=== PATIENT | male | born 1955 | race Caucasian/White ===

== ENCOUNTER 2022-06-05 13:58 | Inpatient (IN) | payer OTHER, MEDICARE ==
[2022-06-05] VITALS (14 sets, daily range): BP systolic 86–139; BP diastolic 32–80
[~2022-06-05] VITALS: Ht 175.3 cm; Wt 76.4 kg
[2022-06-05] MEDS ORDERED: potassium Cl 40MEQ/1/2NS 520ml 520 ML IV PRN (14:45)
[2022-06-05] MEDS ORDERED: acetaminophen 650mg rectal suppository RC PRN (14:45)
[2022-06-05] MEDS ORDERED: piperacillin/tazo 3.375gm/50ml 50 ML IV ONE (14:45)
[2022-06-05] MEDS ORDERED: magnesium hydroxide 30ml (MOM) UD suspension PO PRN (14:45)
[2022-06-05] MEDS ORDERED: magnesium Cl slow-release 64mg tablet PO PRN (14:45)
[2022-06-05] MEDS ORDERED: ondansetron/PF 4mg/2ml inj IV PRN (14:45)
[2022-06-05] MEDS ORDERED: magnesium 4gm in 100ml NS 100 ML IV PRN (14:45)
[2022-06-05] MEDS ORDERED: HYDROmorphone/PF 0.2 MG/ML SYRINGE IV PRN (14:45)
[2022-06-05] MEDS ORDERED: HYDROcodone/acetaminophen 5mg/325mg tablet PO PRN (14:45)
[2022-06-05] MEDS ORDERED: bisacodyl 10mg suppository rectal RC PRN (14:45)
[2022-06-05] MEDS ORDERED: acetaminophen 325mg tablet PO PRN ×2 (14:45)
[2022-06-05] MEDS ORDERED: metoclopramide 5 mg/ml inj IV PRN (14:45)
[2022-06-05] MEDS ORDERED: ondansetron 4mg rapidly disintigrating tab PO PRN (14:45)
[2022-06-05 14:53] LABS: BASOPHILS % (AUTO) 0.1 % (0-1); EOSINOPHILS % (AUTO) 0 % (0-6); HEMATOCRIT 38.3 % (42.0-52.0); HEMOGLOBIN 12.6 g/dl (14.0-17.9); LYMPHOCYTES # (AUTO) 0.6 X10'3 (1.1-4.8); LYMPHOCYTES % (AUTO) 3.5 % (21-51); MEAN CORPUSCULAR HEMOGLOBIN 31.8 PG (27.0-31.0); MEAN CORPUSCULAR HGB CONC 32.9 g/dL (33.0-36.5); MEAN CORPUSCULAR VOLUME 96.6 FL (78-98); MEAN PLATELET VOLUME 7.7 FL (7.4-10.4); MONOCYTES # (AUTO) 1.7 X10'3 (0-0.9); MONOCYTES % (AUTO) 9.5 % (2-12); NEUTROPHILS # (AUTO) 15.2 X10'3 (1.8-7.7); NEUTROPHILS % (AUTO) 86.9 % (42-75); PLATELET COUNT 330 X10'3 (140-440); RED BLOOD COUNT 3.96 X10'6 (4.70-6.10); RED CELL DISTRIBUTION WIDTH 13.2 % (11.5-14.5); WHITE BLOOD COUNT 17.5 X10'3 (4.5-11.0)
[2022-06-05 14:56] LABS: APTT 30 SECONDS (22-32)
[2022-06-05 14:57] LABS: ALANINE AMINOTRANSFERASE 53 U/L (12-78); ALBUMIN 2.9 G/DL (3.4-5.0); ALBUMIN/GLOBULIN RATIO 0.6 (1.1-1.5); ALKALINE PHOSPHATASE 88 IU/L (46-116); ANION GAP 13 (8-16); ASPARTATE AMINO TRANSFERASE 62 U/L (10-37); BLOOD UREA NITROGEN 10 MG/DL (7-18); BUN/CREATININE RATIO 10.4 (5.4-32.0); CALCIUM 8.8 MG/DL (8.5-10.1); CHLORIDE 92 MMOL/L (99-107); CREATININE 0.96 MG/DL (0.60-1.10); GLUCOSE 101 MG/DL (70-104); LIPASE 151 U/L (73-393); POTASSIUM 2.7 MMOL/L (3.5-5.1); SODIUM 132 MMOL/L (135-145); TOTAL CARBON DIOXIDE 27.3 MMOL/L (24-32); eGFR 78 ML/MIN
--- NOTE | 2022-06-05 16:17 | NUR ---
PATIENT IS BEING TAKEN TO IR FOR PROCEDURE, THEN ADMITTED TO ROOM 357B. ATTEMPTED TO CALL REPORT TO THE SURGICAL FLOOR. NURSE WILL CALL BACK.
[2022-06-05] MEDS ORDERED: midazolam 1 mg/ML 2ml injection ONE (16:26)
[2022-06-05] MEDS ORDERED: fentaNYL/PF 50MCG/1 ML 2ML syringe ONE (16:26)
--- NOTE | 2022-06-05 16:27 | NUR ---
REPORT GIVEN TO RENÉ VALVERDE ON SURGICAL UNIT. PATIENT WILL BE TAKEN TO FLOOR AFTER IR PROCEDURE IS COMPLETED.
[2022-06-05] MEDS ORDERED: ROSU5TAB12 PO (16:52)
[2022-06-05] MEDS ORDERED: TERA2CAP4 PO (16:52)
[2022-06-05] MEDS ORDERED: AMLO5TAB16 PO (16:52)
[2022-06-05] MEDS ORDERED: HYDR-3965 PO (16:52)
[2022-06-05] MEDS ORDERED: SERT-433 PO (16:52)
[2022-06-05] MEDS ORDERED: METH-798 PO (16:52)
[2022-06-05] MEDS: normal saline 1000ml 1,000 ML IV SCH (18:00)
[2022-06-05] MEDS: HYDROcodone/acetaminophen 10/325mg tab PO PRN (19:18)
[2022-06-05] MEDS: K and/or MAG REPLACEMENT MC SCH (20:00)
[2022-06-05] MEDS: docusate sod 100mg capsule PO SCH (20:37)
[2022-06-05] MEDS: heparin, porcine 5000 units/ml vial SQ SCH (20:42)
[2022-06-05] MEDS: cyclobenzaprine 10mg tablet PO SCH (20:43)
[2022-06-05] MEDS: potassium Cl 20 mEq SR tablet PO PRN (20:47)
[2022-06-05] MEDS: Terazosin 1mg capsule PO SCH (21:00)
[2022-06-05] MEDS ORDERED: temazepam 15mg capsule PO PRN (21:00)
[2022-06-06] MEDS ORDERED: piperacillin/tazo 3.375gm/50ml 50 ML IV SCH
[2022-06-06] MEDS: normal saline 1000ml 1,000 ML IV SCH ×3 (00:45→12:34)
[2022-06-06] MEDS: potassium Cl 20 mEq SR tablet PO PRN (01:23)
[2022-06-06 01:39] VITALS: BP 103/64
[2022-06-06] MEDS: piperacillin/tazo 3.375gm/50ml 50 ML IV SCH ×3 (04:34→19:56)
[2022-06-06 06:00] VITALS: BP 114/66
[2022-06-06 06:52] LABS: EOSINOPHILS % (AUTO) 0 % (0-6); HEMOGLOBIN 11.5 g/dl (14.0-17.9); NEUTROPHILS # (AUTO) 11.7 X10'3 (1.8-7.7); PLATELET COUNT 287 X10'3 (140-440); WHITE BLOOD COUNT 13.1 X10'3 (4.5-11.0)
[2022-06-06 06:55] LABS: BASOPHILS % (AUTO) 0.3 % (0-1); HEMATOCRIT 33.7 % (42.0-52.0); LYMPHOCYTES # (AUTO) 0.5 X10'3 (1.1-4.8); LYMPHOCYTES % (AUTO) 3.4 % (21-51); MEAN CORPUSCULAR HEMOGLOBIN 32.5 PG (27.0-31.0); MEAN CORPUSCULAR HGB CONC 34.1 g/dL (33.0-36.5); MEAN CORPUSCULAR VOLUME 95.4 FL (78-98); MONOCYTES # (AUTO) 0.9 X10'3 (0-0.9); MONOCYTES % (AUTO) 7.2 % (2-12); NEUTROPHILS % (AUTO) 89.1 % (42-75); RED BLOOD COUNT 3.53 X10'6 (4.70-6.10); RED CELL DISTRIBUTION WIDTH 13.2 % (11.5-14.5)
[2022-06-06 07:11] LABS: ALANINE AMINOTRANSFERASE 39 U/L (12-78); ALBUMIN 2.1 G/DL (3.4-5.0); ALBUMIN/GLOBULIN RATIO 0.5 (1.1-1.5); ALKALINE PHOSPHATASE 72 IU/L (46-116); ANION GAP 10 (8-16); ASPARTATE AMINO TRANSFERASE 50 U/L (10-37); BILIRUBIN,TOTAL 1.4 MG/DL (0.1-1.0); BLOOD UREA NITROGEN 8 MG/DL (7-18); BUN/CREATININE RATIO 9.2 (5.4-32.0); CHLORIDE 96 MMOL/L (99-107); CREATININE 0.87 MG/DL (0.60-1.10); GLUCOSE 109 MG/DL (70-104); MAGNESIUM 1.8 MG/DL (1.5-2.4); POTASSIUM 3.5 MMOL/L (3.5-5.1); SODIUM 129 MMOL/L (135-145); TOTAL CARBON DIOXIDE 23.5 MMOL/L (24-32); TOTAL PROTEIN 6.4 G/DL (6.4-8.2); eGFR 88 ML/MIN
[2022-06-06] MEDS: HYDROcodone/acetaminophen 5mg/325mg tablet PO SCH ×3 (07:56→16:00)
[2022-06-06] MEDS: cyclobenzaprine 10mg tablet PO SCH ×2 (07:56→19:55)
[2022-06-06] MEDS: amLODIPine 5mg tablet PO SCH (07:56)
[2022-06-06] MEDS: atorvastatin 20mg tablet PO SCH (07:57)
[2022-06-06] MEDS: heparin, porcine 5000 units/ml vial SQ SCH (07:57)
[2022-06-06] MEDS: sertraline 50mg tablet PO SCH (07:59)
[2022-06-06] MEDS: K and/or MAG REPLACEMENT MC SCH ×2 (08:00→20:07)
[2022-06-06] MEDS: docusate sod 100mg capsule PO SCH ×2 (08:00→20:00)
[2022-06-06 11:00] VITALS: BP 112/69
--- NOTE | 2022-06-06 11:35 | NUR ---
Malnutrition Consult: Pt reports unsure of wt loss w/ decreased intake [employer] per RN Malnutrition Screen. Current scaled wt appropriate w/ no prior scaled wt hx in EMR. 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 Pt w/ no edema, mild weakness, and appears WD/WN per MD note in EMR. Pending initial PO intake on clear liquids diet. Pt lacks minimum malnutrition criteria at this time. Addendum: 06/06/22 at [address] Amended: Links added.
[2022-06-06] MEDS: vancomycin/NS 1 GM ADD-VANTAGE 250 ML IV SCH (17:24)
--- NOTE | 2022-06-06 17:53 | NUR ---
PAGER ID: [phone] MESSAGE: Stacey Surg [phone] Re: Hannah 357B Reminder patient wanted to be full code
[2022-06-06 18:00] VITALS: BP 114/66
--- NOTE | 2022-06-06 18:48 | NUR ---
PAGER ID: [phone] MESSAGE: Prudence Surg [phone] Re; 357B Hannah, Can we change scheduled Warner to just his PRN?
--- NOTE | 2022-06-06 18:49 | NUR ---
Problems reprioritized. Patient report given, questions answered & plan of care reviewed with Prudence RN.
--- NOTE | 2022-06-06 18:57 | NUR ---
Patient in room [facility]. I have received report from PALMIRA MERRITT and had the opportunity to ask questions and assume patient care.
[2022-06-06] MEDS: HYDROmorphone inj. 0.5 MG/0.5 ML DISP.SYRIN IV PRN (19:55)
[2022-06-06] MEDS ORDERED: heparin, porcine 5000 units/ml vial SQ ONE (20:00)
[2022-06-06] MEDS: Terazosin 1mg capsule PO SCH (21:00)
[2022-06-06] MEDS: diatr meglu/diatrizoate 30ml oral sol.-(3 dose) bottle PO SCH (22:23)
[2022-06-07] MEDS: normal saline 1000ml 1,000 ML IV SCH ×2 (03:06→16:18)
[2022-06-07] MEDS: HYDROcodone/acetaminophen 10/325mg tab PO PRN ×3 (03:06→16:19)
[2022-06-07] MEDS: piperacillin/tazo 3.375gm/50ml 50 ML IV SCH ×3 (04:19→19:36)
[2022-06-07] MEDS: vancomycin/NS 1 GM ADD-VANTAGE 250 ML IV SCH (05:25)
[2022-06-07 06:00] VITALS: BP 101/67
--- NOTE | 2022-06-07 06:35 | NUR ---
Problems reprioritized. Patient report given, questions answered & plan of care reviewed with RODRIGUEZ MERRITT.
--- NOTE | 2022-06-07 06:49 | NUR ---
Patient in room [facility]. I have received report from Vesna MERRITT and had the opportunity to ask questions and assume patient care.
[2022-06-07 07:06] LABS: BASOPHILS # (AUTO) 0.1 X10'3 (0-0.2); BASOPHILS % (AUTO) 1.1 % (0-1); EOSINOPHILS # (AUTO) 0.1 X10'3 (0-0.9); EOSINOPHILS % (AUTO) 0.7 % (0-6); HEMATOCRIT 32.1 % (42.0-52.0); HEMOGLOBIN 10.7 g/dl (14.0-17.9); LYMPHOCYTES # (AUTO) 0.6 X10'3 (1.1-4.8); LYMPHOCYTES % (AUTO) 4.9 % (21-51); MEAN CORPUSCULAR HEMOGLOBIN 32.3 PG (27.0-31.0); MEAN CORPUSCULAR HGB CONC 33.4 g/dL (33.0-36.5); MEAN CORPUSCULAR VOLUME 96.8 FL (78-98); MEAN PLATELET VOLUME 7.8 FL (7.4-10.4); MONOCYTES # (AUTO) 0.9 X10'3 (0-0.9); MONOCYTES % (AUTO) 7.9 % (2-12); NEUTROPHILS % (AUTO) 85.4 % (42-75); PLATELET COUNT 312 X10'3 (140-440); RED BLOOD COUNT 3.31 X10'6 (4.70-6.10); RED CELL DISTRIBUTION WIDTH 13.2 % (11.5-14.5); WHITE BLOOD COUNT 11.7 X10'3 (4.5-11.0)
[2022-06-07 07:25] LABS: ALANINE AMINOTRANSFERASE 43 U/L (12-78); ALBUMIN 1.8 G/DL (3.4-5.0); ALBUMIN/GLOBULIN RATIO 0.4 (1.1-1.5); ALKALINE PHOSPHATASE 66 IU/L (46-116); ANION GAP 9 (8-16); ASPARTATE AMINO TRANSFERASE 55 U/L (10-37); BILIRUBIN,TOTAL 0.7 MG/DL (0.1-1.0); BLOOD UREA NITROGEN 9 MG/DL (7-18); BUN/CREATININE RATIO 10.8 (5.4-32.0); CALCIUM 8.2 MG/DL (8.5-10.1); CHLORIDE 98 MMOL/L (99-107); CREATININE 0.83 MG/DL (0.60-1.10); GLUCOSE 95 MG/DL (70-104); MAGNESIUM 2.2 MG/DL (1.5-2.4); POTASSIUM 3.3 MMOL/L (3.5-5.1); SODIUM 131 MMOL/L (135-145); TOTAL CARBON DIOXIDE 24.4 MMOL/L (24-32); TOTAL PROTEIN 6.1 G/DL (6.4-8.2); eGFR > 90 ML/MIN
[2022-06-07] MEDS: cyclobenzaprine 10mg tablet PO SCH ×2 (07:28→19:36)
[2022-06-07] MEDS: diatr meglu/diatrizoate 30ml oral sol.-(3 dose) bottle PO SCH ×2 (07:28→08:58)
[2022-06-07] MEDS: docusate sod 100mg capsule PO SCH ×2 (07:29→19:52)
[2022-06-07] MEDS: amLODIPine 5mg tablet PO SCH (07:29)
[2022-06-07] MEDS: sertraline 50mg tablet PO SCH (07:30)
[2022-06-07] MEDS: atorvastatin 20mg tablet PO SCH (07:30)
[2022-06-07] MEDS: K and/or MAG REPLACEMENT MC SCH ×2 (08:00→19:52)
[2022-06-07 10:00] VITALS: BP 101/66
[2022-06-07] MEDS: potassium Cl 20 mEq SR tablet PO PRN (12:36)
[2022-06-07] MEDS: HYDROmorphone inj. 0.5 MG/0.5 ML DISP.SYRIN IV PRN (13:14)
--- NOTE | 2022-06-07 18:35 | NUR ---
Problems reprioritized. Patient report given, questions answered & plan of care reviewed with Prudence RN.
--- NOTE | 2022-06-07 19:10 | NUR ---
Patient in room [facility]. I have received report from RODRIGUEZ MERRITT and had the opportunity to ask questions and assume patient care.
[2022-06-07 19:12] VITALS: BP 110/66
[2022-06-07] MEDS ORDERED: LIDOcaine 2% 10ml TOPICAL JELLY (Urojet) TP ONE (19:55)
--- NOTE | 2022-06-07 20:00 | NUR ---
PER DOCTOR ISIAH, TO BLADDER SCAN PATIENT AND IF THERE IS URINE GREATER THAN 500 CC, TO INSERT FC. 992CC SHOWING ON THE SCANNER AND FC HAS BEEN INSERTED PER MD ORDER. 1800CC OUT IN THE FC. WILL CONTINUE TO MONITOR.
[2022-06-07] MEDS: Terazosin 1mg capsule PO SCH (21:00)
[2022-06-07 21:18] VITALS: BP 96/56
--- NOTE | 2022-06-07 21:28 | NUR ---
Student documentation: I have reviewed and agree with all interventions, assessments performed and documented by PALMIRA(STUDENT).
--- NOTE | 2022-06-07 21:33 | NUR ---
Student Medication Administration: For this medication-pass time frame, all medication were reviewed, dispensed, administered and documented per hospital policy by PALMIRA (STUDENT).
[2022-06-07 22:00] VITALS: BP 103/63
[2022-06-08] VITALS (31 sets, daily range): BP systolic 103–144; BP diastolic 57–85
[2022-06-08] MEDS: normal saline 1000ml 1,000 ML IV SCH ×3 (02:22→20:44)
[2022-06-08] MEDS: piperacillin/tazo 3.375gm/50ml 50 ML IV SCH ×3 (04:03→20:39)
[2022-06-08] MEDS ORDERED: VANCOMYCIN LEVEL IV ONE (04:30)
--- NOTE | 2022-06-08 06:12 | NUR ---
Patient in room [facility]. I have received report from Vesna MERRITT and had the opportunity to ask questions and assume patient care.
--- NOTE | 2022-06-08 06:13 | NUR ---
Problems reprioritized. Patient report given, questions answered & plan of care reviewed with RODRIGUEZ MERRITT.
[2022-06-08 06:48] LABS: BASOPHILS % (AUTO) 0.2 % (0-1); EOSINOPHILS # (AUTO) 0.1 X10'3 (0-0.9); EOSINOPHILS % (AUTO) 1.2 % (0-6); HEMATOCRIT 34.6 % (42.0-52.0); HEMOGLOBIN 11.5 g/dl (14.0-17.9); LYMPHOCYTES # (AUTO) 0.5 X10'3 (1.1-4.8); LYMPHOCYTES % (AUTO) 3.7 % (21-51); MEAN CORPUSCULAR HEMOGLOBIN 32.4 PG (27.0-31.0); MEAN CORPUSCULAR HGB CONC 33.3 g/dL (33.0-36.5); MEAN CORPUSCULAR VOLUME 97.1 FL (78-98); MEAN PLATELET VOLUME 8.3 FL (7.4-10.4); MONOCYTES # (AUTO) 0.8 X10'3 (0-0.9); MONOCYTES % (AUTO) 6.7 % (2-12); NEUTROPHILS # (AUTO) 10.8 X10'3 (1.8-7.7); NEUTROPHILS % (AUTO) 88.2 % (42-75); PLATELET COUNT 390 X10'3 (140-440); RED BLOOD COUNT 3.56 X10'6 (4.70-6.10); RED CELL DISTRIBUTION WIDTH 13.3 % (11.5-14.5); WHITE BLOOD COUNT 12.2 X10'3 (4.5-11.0)
[2022-06-08 06:55] LABS: ALANINE AMINOTRANSFERASE 45 U/L (12-78); ALBUMIN/GLOBULIN RATIO 0.4 (1.1-1.5); ALKALINE PHOSPHATASE 78 IU/L (46-116); ANION GAP 8 (8-16); ASPARTATE AMINO TRANSFERASE 51 U/L (10-37); BILIRUBIN,TOTAL 0.7 MG/DL (0.1-1.0); BLOOD UREA NITROGEN 8 MG/DL (7-18); BUN/CREATININE RATIO 9.5 (5.4-32.0); CALCIUM 8.5 MG/DL (8.5-10.1); CHLORIDE 98 MMOL/L (99-107); CREATININE 0.84 MG/DL (0.60-1.10); GLUCOSE 100 MG/DL (70-104); MAGNESIUM 2.2 MG/DL (1.5-2.4); POTASSIUM 3.4 MMOL/L (3.5-5.1); SODIUM 130 MMOL/L (135-145); TOTAL CARBON DIOXIDE 24.1 MMOL/L (24-32); TOTAL PROTEIN 6.7 G/DL (6.4-8.2); eGFR > 90 ML/MIN
[2022-06-08] MEDS: diatr meglu/diatrizoate 30ml oral sol.-(3 dose) bottle PO SCH ×2 (07:00→21:00)
[2022-06-08] MEDS: HYDROcodone/acetaminophen 10/325mg tab PO PRN (07:31)
[2022-06-08] MEDS: atorvastatin 20mg tablet PO SCH (07:32)
[2022-06-08] MEDS: sertraline 50mg tablet PO SCH (07:33)
[2022-06-08] MEDS: docusate sod 100mg capsule PO SCH ×2 (07:33→20:00)
[2022-06-08] MEDS: K and/or MAG REPLACEMENT MC SCH ×2 (07:34→20:40)
[2022-06-08] MEDS: cyclobenzaprine 10mg tablet PO SCH ×2 (07:34→20:39)
[2022-06-08] MEDS: potassium Cl 20 mEq SR tablet PO PRN (07:36)
[2022-06-08] MEDS: amLODIPine 5mg tablet PO SCH (08:00)
[2022-06-08] MEDS ORDERED: fentaNYL /PF 50mcg/ml 5ml ampule ONE (15:26)
[2022-06-08] MEDS ORDERED: midazolam 1 mg/ML 2ml injection ONE (15:26)
[2022-06-08] MEDS ORDERED: rocuronium 10mg/ml inj IV ONE (15:26)
[2022-06-08] MEDS ORDERED: propofol inj 20 ML IV ONE (15:26)
[2022-06-08] MEDS ORDERED: meperidine/PF 25mg/ml syringe IV PRN ×2 (16:30)
[2022-06-08] MEDS ORDERED: ringers solution, lacted 1,000 ML IV SCH (16:30)
[2022-06-08] MEDS ORDERED: morphine 2 MG/ML inj. syringe IV PRN (16:30)
[2022-06-08] MEDS ORDERED: proCHLORperazine 10 MG/2 ml inj IV PRN (16:30)
[2022-06-08] MEDS ORDERED: ondansetron/PF 4mg/2ml inj IV PRN (16:30)
[2022-06-08] MEDS ORDERED: neostigmine methylsulfate 1 MG/ML 10ml vial ONE (16:36)
[2022-06-08] MEDS ORDERED: glycopyrrolate 0.2mg/ml inj ONE (16:36)
--- NOTE | 2022-06-08 16:52 | NUR ---
Received from OR via HOSPITAL BED , accompanied by Anesthesiologist DR SIM and report given by Anesthesiolgist. PT PRESENTS WITH PIV 20G RIGHT FOREARM, ABD DRESSING WITH CARLA DRAIN, CDI, VSS. Addendum: 06/08/22 at 1707 by Verna Dalton RN, RN Amended: Links added.
[2022-06-08] MEDS: meperidine/PF 25mg/ml syringe IV PRN ×3 (17:39→18:28)
--- NOTE | 2022-06-08 18:32 | NUR ---
Updates given to prudence RN. Pt still in OR/recovery.
[2022-06-08] MEDS: morphine 4 MG/ML inj SYRINge IV PRN (18:34)
--- NOTE | 2022-06-08 18:46 | NUR ---
PATIENT STILL OR
[2022-06-08] MEDS ORDERED: naloxone 0.4 mg/ml inj IV PRN (19:00)
[2022-06-08] MEDS ORDERED: PCA WASTE DOCUMENTATION MC SCH (19:10)
[2022-06-08] MEDS: HYDROmorph/NS 0.2 mg/ml PCA 100 ML IV SCH ×3 (19:31→23:00)
--- NOTE | 2022-06-08 20:08 | NUR ---
Report called to receiving nurse ANGELITA MERRITT. Transferred via HOSPITAL BED TO ROOM 357B. BED IN LOW LOCKED POSITION, CALL LIGHT IN REACH, PT HOOKES UP TO EVIE GOLDSTEIN RN AT BEDSIDE. Belongings WERE LEFT IN PT ROOM, GLASSES IN PT CHART. Special Issues communicated to receiving nurse. Addendum: 06/08/22 at 2020 by Verna Dalton RN RN Amended: Links added.
--- NOTE | 2022-06-08 20:11 | NUR ---
PATIENT BACK FROM OR AND IS RESTING WITH NO SIGN OF DISCOMFORT. USING TRAINING PROGRAM ASSISTANT FOR PAIN MANAGEMENT. WILL CONTINUE TO MONITOR.
[2022-06-08] MEDS: Terazosin 1mg capsule PO SCH (20:39)
[2022-06-09] MEDS: HYDROmorph/NS 0.2 mg/ml PCA 100 ML IV SCH ×11 (01:00→23:00)
[2022-06-09 02:00] VITALS: BP 111/80
[2022-06-09] MEDS: piperacillin/tazo 3.375gm/50ml 50 ML IV SCH ×3 (04:21→20:17)
[2022-06-09] MEDS: normal saline 1000ml 1,000 ML IV SCH ×2 (05:52→16:58)
[2022-06-09 06:00] VITALS: BP 110/72
--- NOTE | 2022-06-09 06:10 | NUR ---
Problems reprioritized. Patient report given, questions answered & plan of care reviewed with MAUREEN MERRITT.
[2022-06-09 06:49] LABS: BASOPHILS # (AUTO) 0.1 X10'3 (0-0.2); BASOPHILS % (AUTO) 0.4 % (0-1); EOSINOPHILS % (AUTO) 0.1 % (0-6); HEMATOCRIT 30.6 % (42.0-52.0); HEMOGLOBIN 10.4 g/dl (14.0-17.9); LYMPHOCYTES # (AUTO) 0.3 X10'3 (1.1-4.8); LYMPHOCYTES % (AUTO) 2.5 % (21-51); MEAN CORPUSCULAR HEMOGLOBIN 32.6 PG (27.0-31.0); MEAN PLATELET VOLUME 8.4 FL (7.4-10.4); MONOCYTES # (AUTO) 0.7 X10'3 (0-0.9); MONOCYTES % (AUTO) 5.2 % (2-12); NEUTROPHILS # (AUTO) 12.3 X10'3 (1.8-7.7); NEUTROPHILS % (AUTO) 91.8 % (42-75); PLATELET COUNT 398 X10'3 (140-440); RED BLOOD COUNT 3.19 X10'6 (4.70-6.10); RED CELL DISTRIBUTION WIDTH 13.3 % (11.5-14.5); WHITE BLOOD COUNT 13.4 X10'3 (4.5-11.0)
[2022-06-09] MEDS: diatr meglu/diatrizoate 30ml oral sol.-(3 dose) bottle PO SCH ×2 (07:00→20:16)
[2022-06-09 07:07] LABS: ALANINE AMINOTRANSFERASE 34 U/L (12-78); ALBUMIN 1.7 G/DL (3.4-5.0); ALBUMIN/GLOBULIN RATIO 0.4 (1.1-1.5); ALKALINE PHOSPHATASE 63 IU/L (46-116); ANION GAP 8 (8-16); ASPARTATE AMINO TRANSFERASE 40 U/L (10-37); BILIRUBIN,TOTAL 0.8 MG/DL (0.1-1.0); BLOOD UREA NITROGEN 7 MG/DL (7-18); BUN/CREATININE RATIO 9.5 (5.4-32.0); CALCIUM 7.9 MG/DL (8.5-10.1); CHLORIDE 100 MMOL/L (99-107); CREATININE 0.74 MG/DL (0.60-1.10); GLUCOSE 126 MG/DL (70-104); MAGNESIUM 1.9 MG/DL (1.5-2.4); POTASSIUM 3.8 MMOL/L (3.5-5.1); SODIUM 134 MMOL/L (135-145); TOTAL PROTEIN 5.8 G/DL (6.4-8.2); eGFR > 90 ML/MIN
[2022-06-09] MEDS: meperidine/PF 25mg/ml syringe IV PRN (07:34)
[2022-06-09] MEDS: morphine 4 MG/ML inj SYRINge IV PRN (07:36)
[2022-06-09] MEDS: K and/or MAG REPLACEMENT MC SCH ×2 (08:00→20:00)
[2022-06-09] MEDS: sertraline 50mg tablet PO SCH (08:50)
[2022-06-09] MEDS: amLODIPine 5mg tablet PO SCH (08:57)
[2022-06-09] MEDS: cyclobenzaprine 10mg tablet PO SCH ×2 (08:58→20:14)
[2022-06-09] MEDS: atorvastatin 20mg tablet PO SCH (08:58)
[2022-06-09] MEDS: docusate sod 100mg capsule PO SCH ×2 (08:58→20:15)
[2022-06-09 10:00] VITALS: BP 106/67
[2022-06-09] MEDS: mag hydrox/Alum hydrox/simeth 30ml oral suspension PO PRN (16:58)
[2022-06-09 18:00] VITALS: BP 117/66
[2022-06-09] MEDS: Terazosin 1mg capsule PO SCH (20:14)
[2022-06-09] MEDS: enoxaparin 40mg/0.4ml syringe SUBCUT SCH (20:15)
[2022-06-09 22:00] VITALS: BP 103/66
[2022-06-10] MEDS: HYDROmorph/NS 0.2 mg/ml PCA 100 ML IV SCH ×5 (01:00→09:00)
[2022-06-10] MEDS: normal saline 1000ml 1,000 ML IV SCH ×3 (03:19→23:28)
[2022-06-10] MEDS: piperacillin/tazo 3.375gm/50ml 50 ML IV SCH ×3 (03:53→20:30)
[2022-06-10 06:00] VITALS: BP 106/60
--- NOTE | 2022-06-10 06:05 | NUR ---
Problems reprioritized. Patient report given, questions answered & plan of care reviewed with RENÉ Padron.
[2022-06-10 06:26] LABS: BASOPHILS % (AUTO) 0.3 % (0-1); EOSINOPHILS # (AUTO) 0.1 X10'3 (0-0.9); EOSINOPHILS % (AUTO) 0.5 % (0-6); HEMATOCRIT 27.4 % (42.0-52.0); HEMOGLOBIN 9.2 g/dl (14.0-17.9); LYMPHOCYTES # (AUTO) 0.8 X10'3 (1.1-4.8); LYMPHOCYTES % (AUTO) 4.7 % (21-51); MEAN CORPUSCULAR HEMOGLOBIN 32.5 PG (27.0-31.0); MEAN CORPUSCULAR HGB CONC 33.6 g/dL (33.0-36.5); MEAN CORPUSCULAR VOLUME 96.7 FL (78-98); MEAN PLATELET VOLUME 8.3 FL (7.4-10.4); MONOCYTES # (AUTO) 0.8 X10'3 (0-0.9); NEUTROPHILS # (AUTO) 14.7 X10'3 (1.8-7.7); NEUTROPHILS % (AUTO) 89.5 % (42-75); PLATELET COUNT 450 X10'3 (140-440); RED BLOOD COUNT 2.83 X10'6 (4.70-6.10); RED CELL DISTRIBUTION WIDTH 13.3 % (11.5-14.5); WHITE BLOOD COUNT 16.5 X10'3 (4.5-11.0)
[2022-06-10 06:34] LABS: ALANINE AMINOTRANSFERASE 35 U/L (12-78); ALBUMIN 1.7 G/DL (3.4-5.0); ALBUMIN/GLOBULIN RATIO 0.4 (1.1-1.5); ALKALINE PHOSPHATASE 84 IU/L (46-116); ANION GAP 11 (8-16); ASPARTATE AMINO TRANSFERASE 56 U/L (10-37); BLOOD UREA NITROGEN 9 MG/DL (7-18); BUN/CREATININE RATIO 11.1 (5.4-32.0); CHLORIDE 102 MMOL/L (99-107); CREATININE 0.81 MG/DL (0.60-1.10); GLUCOSE 91 MG/DL (70-104); POTASSIUM 3.4 MMOL/L (3.5-5.1); SODIUM 137 MMOL/L (135-145); TOTAL CARBON DIOXIDE 23.8 MMOL/L (24-32); TOTAL PROTEIN 6.1 G/DL (6.4-8.2); eGFR > 90 ML/MIN
[2022-06-10] MEDS: K and/or MAG REPLACEMENT MC SCH ×2 (08:00→19:28)
[2022-06-10] MEDS: atorvastatin 20mg tablet PO SCH (08:46)
[2022-06-10] MEDS: amLODIPine 5mg tablet PO SCH (08:46)
[2022-06-10] MEDS: docusate sod 100mg capsule PO SCH ×2 (08:46→20:10)
[2022-06-10] MEDS: cyclobenzaprine 10mg tablet PO SCH ×2 (08:46→20:09)
[2022-06-10] MEDS: sertraline 50mg tablet PO SCH (08:46)
[2022-06-10] MEDS: mag hydrox/Alum hydrox/simeth 30ml oral suspension PO PRN (08:52)
[2022-06-10] MEDS ORDERED: HYDROmorphone/PF 0.2 MG/ML SYRINGE IV PRN (12:20)
[2022-06-10] MEDS: oxyCODONE/APAP 5-325mg tablet PO PRN ×3 (13:22→23:27)
[2022-06-10] MEDS ORDERED: PCA WASTE DOCUMENTATION MC SCH (13:30)
[2022-06-10] MEDS: HYDROmorphone inj. 0.5 MG/0.5 ML DISP.SYRIN IV PRN (14:36)
--- NOTE | 2022-06-10 16:54 | NUR ---
Initial: Pt admit DX sepsis secondary to perforated appendicitis, transaminitis, depression, and improving hyponatremia/hypokalemia per EMR. Pt s/p OR for cecal resection and clearance of abdominal abscess 06/08 advanced to full liquids diet to start tonight from initial 4 days clear liquids per EMR. Pt PO mostly 0-25% clears not meeting nutrient needs. OLVIN recommends Ensure Enlive TIDWM now that diet is advanced; notified. LBM 06/08. Will monitor for further PO trends and nutrition intervention needs this admit. Rec: 1. advance diet as medically indicated to low-residue; encourage PO 2. Ensure Enlive TIDWM; pending physician verification in EMR 3. MVI for wound healing needs 4. routine bowel care 5. weekly wts Addendum: 06/10/22 at [address] Amended: Links added.
[2022-06-10 18:00] VITALS: BP 113/57
[2022-06-10] MEDS: lactose-reduced food (Ensure Enlive) - 237ml bottle PO SCH (18:00)
[2022-06-10] MEDS: Terazosin 1mg capsule PO SCH (20:10)
[2022-06-10] MEDS: enoxaparin 40mg/0.4ml syringe SUBCUT SCH (20:10)
[2022-06-10 22:00] VITALS: BP 116/61
[2022-06-11] MEDS: oxyCODONE/APAP 5-325mg tablet PO PRN ×3 (04:06→19:19)
[2022-06-11] MEDS: piperacillin/tazo 3.375gm/50ml 50 ML IV SCH ×3 (04:06→19:28)
[2022-06-11 06:00] VITALS: BP 116/66
--- NOTE | 2022-06-11 06:25 | NUR ---
Problems reprioritized. Patient report given, questions answered & plan of care reviewed with RENÉ Ring.
[2022-06-11 06:41] LABS: BASOPHILS % (AUTO) 0.2 % (0-1); EOSINOPHILS # (AUTO) 0.1 X10'3 (0-0.9); EOSINOPHILS % (AUTO) 0.9 % (0-6); HEMATOCRIT 25.8 % (42.0-52.0); HEMOGLOBIN 8.7 g/dl (14.0-17.9); LYMPHOCYTES # (AUTO) 0.5 X10'3 (1.1-4.8); LYMPHOCYTES % (AUTO) 3.6 % (21-51); MEAN CORPUSCULAR HEMOGLOBIN 32.3 PG (27.0-31.0); MEAN CORPUSCULAR HGB CONC 33.6 g/dL (33.0-36.5); MEAN CORPUSCULAR VOLUME 96.1 FL (78-98); MEAN PLATELET VOLUME 8.1 FL (7.4-10.4); MONOCYTES # (AUTO) 0.6 X10'3 (0-0.9); MONOCYTES % (AUTO) 4.6 % (2-12); NEUTROPHILS # (AUTO) 12.7 X10'3 (1.8-7.7); NEUTROPHILS % (AUTO) 90.7 % (42-75); PLATELET COUNT 483 X10'3 (140-440); RED BLOOD COUNT 2.69 X10'6 (4.70-6.10); RED CELL DISTRIBUTION WIDTH 13.6 % (11.5-14.5)
--- NOTE | 2022-06-11 06:45 | NUR ---
Patient in room [facility]. I have received report from RENÉ SWAN and had the opportunity to ask questions and assume patient care.
[2022-06-11 06:52] LABS: ALANINE AMINOTRANSFERASE 53 U/L (12-78); ALBUMIN 1.5 G/DL (3.4-5.0); ALBUMIN/GLOBULIN RATIO 0.4 (1.1-1.5); ALKALINE PHOSPHATASE 173 IU/L (46-116); ANION GAP 11 (8-16); ASPARTATE AMINO TRANSFERASE 109 U/L (10-37); BILIRUBIN,TOTAL 0.9 MG/DL (0.1-1.0); BLOOD UREA NITROGEN 7 MG/DL (7-18); CALCIUM 7.8 MG/DL (8.5-10.1); CHLORIDE 101 MMOL/L (99-107); GLUCOSE 93 MG/DL (70-104); POTASSIUM 3.1 MMOL/L (3.5-5.1); SODIUM 137 MMOL/L (135-145); TOTAL CARBON DIOXIDE 25.5 MMOL/L (24-32); TOTAL PROTEIN 5.6 G/DL (6.4-8.2); eGFR > 90 ML/MIN
[2022-06-11] MEDS: HYDROmorphone inj. 0.5 MG/0.5 ML DISP.SYRIN IV PRN (07:45)
[2022-06-11] MEDS: K and/or MAG REPLACEMENT MC SCH ×2 (08:00→19:14)
[2022-06-11 10:00] VITALS: BP 127/70
[2022-06-11] MEDS: normal saline 1000ml 1,000 ML IV SCH ×2 (10:43→20:45)
[2022-06-11] MEDS: amLODIPine 5mg tablet PO SCH (10:52)
[2022-06-11] MEDS: atorvastatin 20mg tablet PO SCH (10:53)
[2022-06-11] MEDS: sertraline 50mg tablet PO SCH (10:53)
[2022-06-11] MEDS: cyclobenzaprine 10mg tablet PO SCH ×2 (10:53→19:17)
[2022-06-11] MEDS: docusate sod 100mg capsule PO SCH ×2 (10:58→19:14)
[2022-06-11] MEDS ORDERED: ketorolac tromethamine 15mg/ml inj. IV PRN (11:25)
[2022-06-11] MEDS ORDERED: LIDOcaine 2% 10ml TOPICAL JELLY (Urojet) TP ONE (13:15)
[2022-06-11 18:00] VITALS: BP 122/64
[2022-06-11] MEDS ORDERED: magnesium Cl slow-release 64mg tablet PO PRN (19:15)
[2022-06-11] MEDS ORDERED: potassium Cl 40MEQ/1/2NS 520ml 520 ML IV PRN (19:15)
[2022-06-11] MEDS ORDERED: potassium Cl 20 mEq SR tablet PO PRN (19:15)
[2022-06-11] MEDS ORDERED: magnesium 4gm in 100ml NS 100 ML IV PRN (19:15)
[2022-06-11] MEDS: Terazosin 1mg capsule PO SCH (19:18)
[2022-06-11] MEDS: enoxaparin 40mg/0.4ml syringe SUBCUT SCH (19:18)
--- NOTE | 2022-06-11 19:19 | NUR ---
Problems reprioritized. Patient report given, questions answered & plan of care reviewed with RENÉ SWAN.
[2022-06-11 22:00] VITALS: BP 126/71
[2022-06-12] MEDS: piperacillin/tazo 3.375gm/50ml 50 ML IV SCH ×3 (03:54→19:55)
[2022-06-12] MEDS: oxyCODONE/APAP 5-325mg tablet PO PRN ×2 (04:22→20:51)
[2022-06-12 05:41] LABS: BASOPHILS % (AUTO) 0.1 % (0-1); EOSINOPHILS # (AUTO) 0.1 X10'3 (0-0.9); EOSINOPHILS % (AUTO) 0.7 % (0-6); HEMATOCRIT 28.3 % (42.0-52.0); HEMOGLOBIN 9.3 g/dl (14.0-17.9); LYMPHOCYTES # (AUTO) 0.5 X10'3 (1.1-4.8); LYMPHOCYTES % (AUTO) 4.4 % (21-51); MEAN CORPUSCULAR HEMOGLOBIN 31.4 PG (27.0-31.0); MEAN CORPUSCULAR VOLUME 95.2 FL (78-98); MEAN PLATELET VOLUME 7.9 FL (7.4-10.4); MONOCYTES # (AUTO) 0.7 X10'3 (0-0.9); MONOCYTES % (AUTO) 5.6 % (2-12); NEUTROPHILS # (AUTO) 10.6 X10'3 (1.8-7.7); NEUTROPHILS % (AUTO) 89.2 % (42-75); PLATELET COUNT 588 X10'3 (140-440); RED BLOOD COUNT 2.98 X10'6 (4.70-6.10); RED CELL DISTRIBUTION WIDTH 13.7 % (11.5-14.5); WHITE BLOOD COUNT 11.8 X10'3 (4.5-11.0)
[2022-06-12 06:00] VITALS: BP 137/63
[2022-06-12 06:01] LABS: ALANINE AMINOTRANSFERASE 44 U/L (12-78); ALBUMIN 1.6 G/DL (3.4-5.0); ALBUMIN/GLOBULIN RATIO 0.4 (1.1-1.5); ALKALINE PHOSPHATASE 179 IU/L (46-116); ANION GAP 10 (8-16); ASPARTATE AMINO TRANSFERASE 69 U/L (10-37); BILIRUBIN,TOTAL 0.8 MG/DL (0.1-1.0); BLOOD UREA NITROGEN 5 MG/DL (7-18); BUN/CREATININE RATIO 7.7 (5.4-32.0); CALCIUM 7.7 MG/DL (8.5-10.1); CHLORIDE 98 MMOL/L (99-107); CREATININE 0.65 MG/DL (0.60-1.10); GLUCOSE 96 MG/DL (70-104); SODIUM 134 MMOL/L (135-145); TOTAL CARBON DIOXIDE 25.6 MMOL/L (24-32); TOTAL PROTEIN 5.8 G/DL (6.4-8.2); eGFR > 90 ML/MIN
[2022-06-12 06:06] LABS: POTASSIUM 2.7 MMOL/L (3.5-5.1)
--- NOTE | 2022-06-12 06:09 | NUR ---
CRITICAL POTASSIUM 2.7, DR CHANDLER CALLED, WILL REPLACE PER PROTOCOL
--- NOTE | 2022-06-12 06:35 | NUR ---
Problems reprioritized. Patient report given, questions answered & plan of care reviewed with RENÉ Ring.
--- NOTE | 2022-06-12 06:42 | NUR ---
Patient in room [facility]. I have received report from RENÉ SWAN and had the opportunity to ask questions and assume patient care.
[2022-06-12] MEDS: K and/or MAG REPLACEMENT MC SCH ×2 (08:00→19:58)
[2022-06-12 10:00] VITALS: BP 125/72
[2022-06-12] MEDS: docusate sod 100mg capsule PO SCH ×2 (11:48→19:59)
[2022-06-12] MEDS: amLODIPine 5mg tablet PO SCH (11:48)
[2022-06-12] MEDS: sertraline 50mg tablet PO SCH (11:49)
[2022-06-12] MEDS: atorvastatin 20mg tablet PO SCH (11:49)
[2022-06-12] MEDS: potassium Cl 20 mEq SR tablet PO PRN ×3 (11:49→20:52)
[2022-06-12] MEDS: cyclobenzaprine 10mg tablet PO SCH ×2 (11:49→19:55)
[2022-06-12] MEDS: normal saline 1000ml 1,000 ML IV SCH (11:49)
[2022-06-12] MEDS: lactose-reduced food (Ensure Enlive) - 237ml bottle PO SCH (18:00)
--- NOTE | 2022-06-12 18:23 | NUR ---
Problems reprioritized. Patient report given, questions answered & plan of care reviewed with RENÉ NANCE.
[2022-06-12 19:00] VITALS: BP 128/73
[2022-06-12 19:20] VITALS: BP 128/73
[2022-06-12] MEDS: Potassium Cl inj 20 MEQ in normal saline 1000ml 990 ML IV SCH (19:55)
[2022-06-12] MEDS: enoxaparin 40mg/0.4ml syringe SUBCUT SCH (20:00)
[2022-06-12] MEDS: Terazosin 1mg capsule PO SCH (20:50)
[2022-06-12 22:00] VITALS: BP 120/65
[2022-06-13] MEDS: Potassium Cl inj 20 MEQ in normal saline 1000ml 990 ML IV SCH ×2 (03:05→13:05)
[2022-06-13] MEDS: piperacillin/tazo 3.375gm/50ml 50 ML IV SCH ×3 (04:00→20:06)
[2022-06-13 05:54] LABS: BASOPHILS % (AUTO) 0.2 % (0-1); HEMOGLOBIN 10.1 g/dl (14.0-17.9); LYMPHOCYTES # (AUTO) 0.7 X10'3 (1.1-4.8); RED CELL DISTRIBUTION WIDTH 13.7 % (11.5-14.5)
[2022-06-13 05:57] LABS: EOSINOPHILS # (AUTO) 0.1 X10'3 (0-0.9); HEMATOCRIT 30.6 % (42.0-52.0); LYMPHOCYTES % (AUTO) 4.9 % (21-51); MEAN CORPUSCULAR HEMOGLOBIN 31.7 PG (27.0-31.0); MEAN PLATELET VOLUME 7.9 FL (7.4-10.4); MONOCYTES # (AUTO) 0.8 X10'3 (0-0.9); MONOCYTES % (AUTO) 5.8 % (2-12); NEUTROPHILS # (AUTO) 11.6 X10'3 (1.8-7.7); NEUTROPHILS % (AUTO) 88.1 % (42-75); PLATELET COUNT 699 X10'3 (140-440); RED BLOOD COUNT 3.19 X10'6 (4.70-6.10); WHITE BLOOD COUNT 13.2 X10'3 (4.5-11.0)
[2022-06-13 06:00] VITALS: BP 123/72
[2022-06-13 06:13] LABS: ALANINE AMINOTRANSFERASE 48 U/L (12-78); ALBUMIN/GLOBULIN RATIO 0.4 (1.1-1.5); ALKALINE PHOSPHATASE 168 IU/L (46-116); ANION GAP 10 (8-16); ASPARTATE AMINO TRANSFERASE 63 U/L (10-37); BILIRUBIN,TOTAL 0.8 MG/DL (0.1-1.0); BLOOD UREA NITROGEN 6 MG/DL (7-18); BUN/CREATININE RATIO 8.8 (5.4-32.0); CALCIUM 8.3 MG/DL (8.5-10.1); CHLORIDE 99 MMOL/L (99-107); CREATININE 0.68 MG/DL (0.60-1.10); GLUCOSE 97 MG/DL (70-104); POTASSIUM 3.6 MMOL/L (3.5-5.1); SODIUM 134 MMOL/L (135-145); TOTAL CARBON DIOXIDE 24.7 MMOL/L (24-32); TOTAL PROTEIN 6.7 G/DL (6.4-8.2); eGFR > 90 ML/MIN
--- NOTE | 2022-06-13 06:17 | NUR ---
Patient in room [facility]. I have received report from RENÉ NANCE and had the opportunity to ask questions and assume patient care.
[2022-06-13] MEDS: lactose-reduced food (Ensure Enlive) - 237ml bottle PO SCH ×3 (08:00→18:00)
[2022-06-13] MEDS: K and/or MAG REPLACEMENT MC SCH ×2 (08:00→20:00)
[2022-06-13] MEDS: docusate sod 100mg capsule PO SCH (08:00)
--- NOTE | 2022-06-13 08:58 | NUR ---
Reassessment: Pt has been advanced to Regular diet 06/11, continues w/ mostly 0-25% intake though did have 100% of first ONS. If pt consumes 100% of ONS it will meet ~55% of est energy needs and 52% of est protein needs. Recommend changing to Low Residue diet given GI surgery. LBM 06/12 receiving routine colace. Will continue to monitor. Rec: 1. Change to Low residue diet; encourage PO 2. Ensure Enlive TIDW 3. MVI for wound healing needs 4. routine bowel care 5. weekly wts Addendum: 06/13/22 at [address] Amended: Links added.
[2022-06-13] MEDS: atorvastatin 20mg tablet PO SCH (09:00)
[2022-06-13] MEDS: cyclobenzaprine 10mg tablet PO SCH ×2 (09:00→20:06)
[2022-06-13] MEDS: sertraline 50mg tablet PO SCH (09:00)
[2022-06-13] MEDS: amLODIPine 5mg tablet PO SCH (09:01)
[2022-06-13 11:00] VITALS: BP 128/73
[2022-06-13 18:00] VITALS: BP 132/61
--- NOTE | 2022-06-13 18:25 | NUR ---
Patient in room [facility]. I have received report from RENÉ Ring and had the opportunity to ask questions and assume patient care.
--- NOTE | 2022-06-13 19:12 | NUR ---
Problems reprioritized. Patient report given, questions answered & plan of care reviewed with RENÉ MENDOZA.
[2022-06-13] MEDS: enoxaparin 40mg/0.4ml syringe SUBCUT SCH (20:07)
[2022-06-13] MEDS: Terazosin 1mg capsule PO SCH (20:07)
[2022-06-13 22:00] VITALS: BP 133/70
[2022-06-14] MEDS: Potassium Cl inj 20 MEQ in normal saline 1000ml 990 ML IV SCH ×3 (02:51→12:22)
[2022-06-14] MEDS: piperacillin/tazo 3.375gm/50ml 50 ML IV SCH ×3 (03:51→20:16)
[2022-06-14 06:00] VITALS: BP 131/80
--- NOTE | 2022-06-14 06:41 | NUR ---
Problems reprioritized. Patient report given, questions answered & plan of care reviewed with RENÉ Curtis.
--- NOTE | 2022-06-14 06:53 | NUR ---
Patient in room [facility]. I have received report from Andree MERRITT and had the opportunity to ask questions and assume patient care.
[2022-06-14 07:09] LABS: BASOPHILS # (AUTO) 0.1 X10'3 (0-0.2); EOSINOPHILS # (AUTO) 0.2 X10'3 (0-0.9); HEMOGLOBIN 10.2 g/dl (14.0-17.9); LYMPHOCYTES # (AUTO) 0.7 X10'3 (1.1-4.8); MEAN PLATELET VOLUME 7.8 FL (7.4-10.4)
[2022-06-14 07:11] LABS: BASOPHILS % (AUTO) 0.4 % (0-1); EOSINOPHILS % (AUTO) 1.1 % (0-6); HEMATOCRIT 29.8 % (42.0-52.0); LYMPHOCYTES % (AUTO) 4.5 % (21-51); MEAN CORPUSCULAR HEMOGLOBIN 32.5 PG (27.0-31.0); MEAN CORPUSCULAR HGB CONC 34.1 g/dL (33.0-36.5); MEAN CORPUSCULAR VOLUME 95.3 FL (78-98); MONOCYTES # (AUTO) 0.9 X10'3 (0-0.9); MONOCYTES % (AUTO) 5.9 % (2-12); NEUTROPHILS # (AUTO) 12.9 X10'3 (1.8-7.7); NEUTROPHILS % (AUTO) 88.1 % (42-75); PLATELET COUNT 657 X10'3 (140-440); RED BLOOD COUNT 3.13 X10'6 (4.70-6.10); RED CELL DISTRIBUTION WIDTH 13.7 % (11.5-14.5); WHITE BLOOD COUNT 14.6 X10'3 (4.5-11.0)
[2022-06-14 07:25] LABS: ALANINE AMINOTRANSFERASE 47 U/L (12-78); ALBUMIN 1.9 G/DL (3.4-5.0); ALBUMIN/GLOBULIN RATIO 0.4 (1.1-1.5); ALKALINE PHOSPHATASE 142 IU/L (46-116); ANION GAP 12 (8-16); ASPARTATE AMINO TRANSFERASE 55 U/L (10-37); BILIRUBIN,TOTAL 0.7 MG/DL (0.1-1.0); BLOOD UREA NITROGEN 7 MG/DL (7-18); BUN/CREATININE RATIO 10.6 (5.4-32.0); CALCIUM 8.1 MG/DL (8.5-10.1); CHLORIDE 99 MMOL/L (99-107); CREATININE 0.66 MG/DL (0.60-1.10); GLUCOSE 109 MG/DL (70-104); POTASSIUM 3.8 MMOL/L (3.5-5.1); SODIUM 132 MMOL/L (135-145); TOTAL CARBON DIOXIDE 21.4 MMOL/L (24-32); TOTAL PROTEIN 6.6 G/DL (6.4-8.2); eGFR > 90 ML/MIN
[2022-06-14] MEDS: K and/or MAG REPLACEMENT MC SCH ×2 (08:00→20:00)
[2022-06-14] MEDS: sertraline 50mg tablet PO SCH (08:39)
[2022-06-14] MEDS: cyclobenzaprine 10mg tablet PO SCH ×2 (08:39→20:16)
[2022-06-14] MEDS: atorvastatin 20mg tablet PO SCH (08:39)
[2022-06-14] MEDS: amLODIPine 5mg tablet PO SCH (08:40)
[2022-06-14] MEDS: oxyCODONE/APAP 5-325mg tablet PO PRN (08:41)
[2022-06-14] MEDS: lactose-reduced food (Ensure Enlive) - 237ml bottle PO SCH ×3 (08:42→18:00)
[2022-06-14 11:00] VITALS: BP 112/60
[2022-06-14] MEDS ORDERED: iohexol 300mg/ml 100ml inj. ONE (14:25)
--- NOTE | 2022-06-14 16:59 | NUR ---
PAGER ID: [phone] MESSAGE: Bereket Alejandre#[phone]- FYI Pt's CT results are up. Thank you Kirsten Bernal [phone]
[2022-06-14] MEDS: mag hydrox/Alum hydrox/simeth 30ml oral suspension PO PRN (17:50)
[2022-06-14 18:00] VITALS: BP 134/77
--- NOTE | 2022-06-14 18:23 | NUR ---
Problems reprioritized. Patient report given, questions answered & plan of care reviewed with Andree MERRITT.
--- NOTE | 2022-06-14 18:25 | NUR ---
Patient in room [facility]. I have received report from RENÉ Curtis and had the opportunity to ask questions and assume patient care.
[2022-06-14] MEDS: Terazosin 1mg capsule PO SCH (20:16)
[2022-06-14] MEDS: enoxaparin 40mg/0.4ml syringe SUBCUT SCH (20:16)
[2022-06-14 22:00] VITALS: BP 135/72
[2022-06-15] MEDS: piperacillin/tazo 3.375gm/50ml 50 ML IV SCH ×3 (04:12→19:50)
[2022-06-15] MEDS: Potassium Cl inj 20 MEQ in normal saline 1000ml 990 ML IV SCH ×2 (04:13→12:34)
[2022-06-15 06:00] VITALS: BP 113/72
--- NOTE | 2022-06-15 06:24 | NUR ---
Problems reprioritized. Patient report given, questions answered & plan of care reviewed with RENÉ Curtis.
[2022-06-15 06:37] LABS: BASOPHILS # (AUTO) 0.1 X10'3 (0-0.2); BASOPHILS % (AUTO) 0.5 % (0-1); EOSINOPHILS # (AUTO) 0.1 X10'3 (0-0.9); EOSINOPHILS % (AUTO) 0.5 % (0-6); HEMOGLOBIN 9.5 g/dl (14.0-17.9); LYMPHOCYTES # (AUTO) 0.4 X10'3 (1.1-4.8); LYMPHOCYTES % (AUTO) 2.9 % (21-51); MEAN CORPUSCULAR HEMOGLOBIN 31.1 PG (27.0-31.0); MEAN CORPUSCULAR HGB CONC 32.8 g/dL (33.0-36.5); MEAN CORPUSCULAR VOLUME 94.6 FL (78-98); MEAN PLATELET VOLUME 8.2 FL (7.4-10.4); MONOCYTES # (AUTO) 0.6 X10'3 (0-0.9); MONOCYTES % (AUTO) 4.3 % (2-12); NEUTROPHILS # (AUTO) 12.3 X10'3 (1.8-7.7); NEUTROPHILS % (AUTO) 91.8 % (42-75); PLATELET COUNT 547 X10'3 (140-440); RED BLOOD COUNT 3.07 X10'6 (4.70-6.10); RED CELL DISTRIBUTION WIDTH 13.7 % (11.5-14.5); WHITE BLOOD COUNT 13.4 X10'3 (4.5-11.0)
--- NOTE | 2022-06-15 06:46 | NUR ---
Patient in room [facility]. I have received report from Vesna MERRITT and had the opportunity to ask questions and assume patient care.
[2022-06-15 06:51] LABS: ALANINE AMINOTRANSFERASE 49 U/L (12-78); ALBUMIN/GLOBULIN RATIO 0.4 (1.1-1.5); ALKALINE PHOSPHATASE 122 IU/L (46-116); ANION GAP 10 (8-16); ASPARTATE AMINO TRANSFERASE 46 U/L (10-37); BILIRUBIN,TOTAL 0.5 MG/DL (0.1-1.0); BLOOD UREA NITROGEN 8 MG/DL (7-18); BUN/CREATININE RATIO 11.4 (5.4-32.0); CALCIUM 8.1 MG/DL (8.5-10.1); CHLORIDE 98 MMOL/L (99-107); GLUCOSE 103 MG/DL (70-104); POTASSIUM 3.9 MMOL/L (3.5-5.1); SODIUM 131 MMOL/L (135-145); TOTAL CARBON DIOXIDE 22.9 MMOL/L (24-32); TOTAL PROTEIN 6.5 G/DL (6.4-8.2); eGFR > 90 ML/MIN
[2022-06-15] MEDS: sertraline 50mg tablet PO SCH (07:38)
[2022-06-15] MEDS: atorvastatin 20mg tablet PO SCH (07:38)
[2022-06-15] MEDS: cyclobenzaprine 10mg tablet PO SCH ×2 (07:38→19:50)
[2022-06-15] MEDS: mag hydrox/Alum hydrox/simeth 30ml oral suspension PO PRN (07:39)
[2022-06-15] MEDS: amLODIPine 5mg tablet PO SCH (08:00)
[2022-06-15] MEDS: lactose-reduced food (Ensure Enlive) - 237ml bottle PO SCH ×3 (08:00→18:00)
[2022-06-15] MEDS: K and/or MAG REPLACEMENT MC SCH ×2 (08:00→19:43)
[2022-06-15 10:00] VITALS: BP 103/62
[2022-06-15] MEDS ORDERED: pantoprazole 40mg Tablet.DR PO STA (10:39)
[2022-06-15 18:00] VITALS: BP 122/69
--- NOTE | 2022-06-15 18:30 | NUR ---
Patient in room [facility]. I have received report from RENÉ Curtis and had the opportunity to ask questions and assume patient care.
--- NOTE | 2022-06-15 18:38 | NUR ---
Problems reprioritized. Patient report given, questions answered & plan of care reviewed with shai MERRITT.
[2022-06-15] MEDS: Terazosin 1mg capsule PO SCH (19:50)
[2022-06-15] MEDS: enoxaparin 40mg/0.4ml syringe SUBCUT SCH (19:51)
[2022-06-15 22:00] VITALS: BP 131/67
[2022-06-16] MEDS: Potassium Cl inj 20 MEQ in normal saline 1000ml 990 ML IV SCH ×2 (01:19→11:05)
[2022-06-16] MEDS: piperacillin/tazo 3.375gm/50ml 50 ML IV SCH (03:52)
[2022-06-16 06:18] LABS: BASOPHILS # (AUTO) 0.1 X10'3 (0-0.2); BASOPHILS % (AUTO) 0.6 % (0-1); EOSINOPHILS # (AUTO) 0.1 X10'3 (0-0.9); EOSINOPHILS % (AUTO) 0.5 % (0-6); HEMATOCRIT 28.9 % (42.0-52.0); HEMOGLOBIN 9.6 g/dl (14.0-17.9); LYMPHOCYTES # (AUTO) 0.6 X10'3 (1.1-4.8); LYMPHOCYTES % (AUTO) 4.8 % (21-51); MEAN CORPUSCULAR HEMOGLOBIN 31.2 PG (27.0-31.0); MEAN CORPUSCULAR HGB CONC 33.1 g/dL (33.0-36.5); MEAN CORPUSCULAR VOLUME 94.4 FL (78-98); MEAN PLATELET VOLUME 7.8 FL (7.4-10.4); MONOCYTES % (AUTO) 8.8 % (2-12); NEUTROPHILS % (AUTO) 85.3 % (42-75); PLATELET COUNT 602 X10'3 (140-440); RED BLOOD COUNT 3.06 X10'6 (4.70-6.10); RED CELL DISTRIBUTION WIDTH 14.2 % (11.5-14.5); WHITE BLOOD COUNT 11.8 X10'3 (4.5-11.0)
[2022-06-16 06:36] LABS: ALANINE AMINOTRANSFERASE 62 U/L (12-78); ALBUMIN 2.1 G/DL (3.4-5.0); ALBUMIN/GLOBULIN RATIO 0.5 (1.1-1.5); ALKALINE PHOSPHATASE 102 IU/L (46-116); ANION GAP 12 (8-16); ASPARTATE AMINO TRANSFERASE 59 U/L (10-37); BILIRUBIN,TOTAL 0.5 MG/DL (0.1-1.0); BLOOD UREA NITROGEN 8 MG/DL (7-18); BUN/CREATININE RATIO 9.9 (5.4-32.0); CHLORIDE 96 MMOL/L (99-107); CREATININE 0.81 MG/DL (0.60-1.10); GLUCOSE 85 MG/DL (70-104); SODIUM 129 MMOL/L (135-145); TOTAL CARBON DIOXIDE 21.5 MMOL/L (24-32); TOTAL PROTEIN 6.7 G/DL (6.4-8.2); eGFR > 90 ML/MIN
--- NOTE | 2022-06-16 06:45 | NUR ---
Problems reprioritized. Patient report given, questions answered & plan of care reviewed with RENÉ Tellez.
[2022-06-16 07:00] VITALS: BP 119/74
[2022-06-16] MEDS ORDERED: pantoprazole 40mg Tablet.DR PO SCH (07:30)
[2022-06-16] MEDS: K and/or MAG REPLACEMENT MC SCH (08:00)
[2022-06-16] MEDS: lactose-reduced food (Ensure Enlive) - 237ml bottle PO SCH (08:51)
[2022-06-16] MEDS: amLODIPine 5mg tablet PO SCH (08:51)
[2022-06-16] MEDS: sertraline 50mg tablet PO SCH (08:51)
[2022-06-16] MEDS: cyclobenzaprine 10mg tablet PO SCH (08:51)
[2022-06-16] MEDS: atorvastatin 20mg tablet PO SCH (08:51)
[2022-06-16] MEDS ORDERED: FLO0.4C PO (10:16)
[2022-06-16] MEDS ORDERED: LEVO-65 PO (10:16)
[2022-06-16] MEDS ORDERED: METR-159 PO (10:16)
[2022-06-16 12:30] VITALS: BP 110/54
== END 2022-06-16 12:35 | DRG 853 ==
LOC: ER 13:59 → ED HOLD 14:45 → SUR 3N 18:34
PROVIDERS: ADMIT Family Medicine; ATTEND Family Medicine
PROC: 0D9 Gastrointestinal System, Drainage (ICD-10-PCS; 2022-06-05)
PROC: 0DTH0ZZ Resection of Cecum, Open Approach (ICD-10-PCS; principal; 2022-06-08 15:22)
PROC: BW211ZZ Computerized Tomography (CT Scan) of Abdomen and Pelvis using Low Osmolar Contrast (ICD-10-PCS; 2022-06-14)
DX: A41.9 Sepsis, unspecified organism (principal); K35.33 Acute appendicitis with perforation, localized peritonitis, and gangrene, with abscess; E87.1 Hypo-osmolality and hyponatremia; L03.311 Cellulitis of abdominal wall; N13.8 Other obstructive and reflux uropathy; E87.6 Hypokalemia; R33.8 Other retention of urine; Z66 Do not resuscitate; J44.9 Chronic obstructive pulmonary disease, unspecified; B96.20 Unspecified Escherichia coli [E. coli] as the cause of diseases classified elsewhere; D75.839 Thrombocytosis, unspecified; R74.01 Elevation of levels of liver transaminase levels; E78.00 Pure hypercholesterolemia, unspecified; F32.A Depression, unspecified; B95.4 Other streptococcus as the cause of diseases classified elsewhere; I10 Essential (primary) hypertension; M54.30 Sciatica, unspecified side; N40.1 Benign prostatic hyperplasia with lower urinary tract symptoms; G89.29 Other chronic pain; M19.90 Unspecified osteoarthritis, unspecified site; R68.83 Chills (without fever); Z87.891 Personal history of nicotine dependence; Z79.2 Long term (current) use of antibiotics; Z91.030 Bee allergy status; Z79.899 Other long term (current) drug therapy
CPT/HCPCS: 36410; 36415; 49406; 71045; 74176; 74177; 76942; 80053; 82948; 83605; 83690; 83735; 84145; 85025; 85610; 85730; 87040; 87070; 87077; 87081; 87186; 93005; 97116; 97162; 97530; 99152; 99153; 99285; A4333; A4421; A4615; A4618; A5200; A6212; A6213; A6253; A6258; A6449; A7000; C1729; C1751; C1769; G0378; J1170; J1644; J1650; J1885; J2175; J2250; J2270; J2405; J2543; J2704; J2710; J3010; J3370; J3480; J3490; J7030; J7040; J7120; Q9963; Q9967

== ENCOUNTER 2024-01-29 12:13 | Emergency (ER) | payer OTHER, MEDICARE ==
[~2024-01-29] VITALS: Ht 175.3 cm; Wt 80.0 kg
[~2024-01-29 12:13] MED LIST: ALBU18HF2 INH; APIX5TAB3 PO; CARV3.12 PO; DICL100G59 TOP; EMPA10TA PO; FINA5TAB42 PO; HYDR-3965 PO; LISI2.5T14 PO; MELO-102 PO; METH-797 PO; SERT-153 PO; SILD20TA14 PO; SULF1TAB49 PO; TERA2CAP4 PO; TIOT4MIS2 PO
[2024-01-29 13:22] LABS: BASOPHILS # (AUTO) 0.1 X10'3 (0-0.2); BASOPHILS % (AUTO) 0.8 % (0-1); EOSINOPHILS % (AUTO) 0.5 % (0-6); HEMATOCRIT 41.4 % (42.0-52.0); HEMOGLOBIN 13.7 g/dl (14.0-17.9); LYMPHOCYTES # (AUTO) 0.9 X10'3 (1.1-4.8); MEAN CORPUSCULAR HEMOGLOBIN 33.2 PG (27.0-31.0); MEAN CORPUSCULAR HGB CONC 33.2 g/dL (33.0-36.5); MEAN CORPUSCULAR VOLUME 100.2 FL (78-98); MEAN PLATELET VOLUME 7.7 FL (7.4-10.4); MONOCYTES # (AUTO) 0.4 X10'3 (0-0.9); NEUTROPHILS % (AUTO) 82.7 % (42-75); PLATELET COUNT 246 X10'3 (140-440); RED BLOOD COUNT 4.13 X10'6 (4.70-6.10); RED CELL DISTRIBUTION WIDTH 13.9 % (11.5-14.5); WHITE BLOOD COUNT 8.5 X10'3 (4.5-11.0)
[2024-01-29 13:46] LABS: ALBUMIN 4.3 G/DL (3.4-5.0); ANION GAP 10 (8-16); BLOOD UREA NITROGEN 9 MG/DL (7-18); BUN/CREATININE RATIO 10.7 (10.0-20.0); CALCIUM 9.5 MG/DL (8.5-10.1); CHLORIDE 101 MMOL/L (99-107); CREATININE 0.84 MG/DL (0.60-1.10); GLUCOSE 102 MG/DL (70-104); PRO BRAIN NATRIURETIC PEPTIDE 257 PG/ML (0-125); SODIUM 139 MMOL/L (135-145); TOTAL CARBON DIOXIDE 27.9 MMOL/L (24-32); eCRCL 84 ML/MIN; eGFR > 90 ML/MIN
[2024-01-29 14:39] VITALS: PULSE 82; RESP 16; O2SAT 95
[2024-01-29] MEDS: ipratropium/albuterol 3ml nebule NEB ONE (14:39)
[2024-01-29 14:48] VITALS: PULSE 83; RESP 14; O2SAT 97
[2024-01-29] MEDS: HYDROcodone/acetaminophen 10/325mg tab PO ONE (14:50)
[2024-01-29] MEDS: dexamethasone sod phosphate 10mg/ml inj IV STA (14:50)
[2024-01-29] MEDS: orphenadrine citrate 60mg/2ml inj. IM ONE (14:51)
[2024-01-29] MEDS ORDERED: PRED20TA PO (15:24)
[2024-01-29 16:01] VITALS: BP 173/94; PULSE 86; RESP 16; TEMP 98.1; O2SAT 96
== END 2024-01-29 19:19 | disposition home or self-care (01) ==
LOC: ER 12:13
DX: J40 Bronchitis, not specified as acute or chronic (principal); E78.00 Pure hypercholesterolemia, unspecified; I10 Essential (primary) hypertension; J44.9 Chronic obstructive pulmonary disease, unspecified; Z91.030 Bee allergy status; Z79.899 Other long term (current) drug therapy; Z79.2 Long term (current) use of antibiotics; Z87.891 Personal history of nicotine dependence
CPT/HCPCS: 36415; 71045; 80048; 83880; 84484; 85025; 93005; 94640; 96372; 96374; 99285; J1100; J2360; 94760